=== PATIENT | female | born 1960 | race Caucasian/White ===

== ENCOUNTER 2017-01-06 22:46 | Emergency (ER) | payer BC ==
[2017-01-06 23:27] VITALS: BP 127/66
[2017-01-07] MEDS ORDERED: Lidocaine 1% 20 ML MDV INJECT ONE (00:41)
--- NOTE | 2017-01-07 01:10 | EDM.PDOC ---
ED HPI GENERAL MEDICAL PROBLEM - General Chief Complaint: Laceration Stated Complaint: FELL CUT HEAD Time Seen by Provider: 01/07/17 00:35 Source of Information: Reports: Patient History Limitations: Reports: No Limitations - History of Present Illness INITIAL COMMENTS - FREE TEXT/NARRATIVE: This patient comes in with scalp laceration to the anterior scalp in the midline. She told the nurse that she fell and bumped her head she tells me that she walked under something in [place]. There was no loss of consciousness. She denies any neck pain - Related Data Allergies Allergy/AdvReac Type Severity Reaction Status Date / Time codeine Allergy Cannot Verified 01/07/17 00:47 Remember Home Meds: Home Meds Atenolol 01/06/17 [History] Citalopram Hydrobromide [Celexa] 01/06/17 [History] Pantoprazole Sodium [Protonix] 01/06/17 [History] Simvastatin [Zocor] 01/06/17 [History] metFORMIN [Glucophage XR] 500 mg PO ACBREAKFAST 01/06/17 [History] metFORMIN [Glucophage] 1,000 mg PO BEDTIME 01/06/17 [History] Past Medical History - Past Health History Medical/Surgical History: Denies Medical/Surgical History Cardiovascular History: Reports: High Cholesterol, Hypertension 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 ED EXAM, SKIN/RASH Exam: See Below Exam Limited By: No Limitations General Appearance: Alert, WD/WN Head: Other (There is a 3 cm transverse scalp laceration to the anterior scalp in the midline fairly clean wound edges are well approximated. Bleeding has stopped) Neurological: Alert, Oriented, CN II-XII Intact, Normal Cognition, Normal Gait, No Motor/Sensory Deficits Course - Vital Signs Last Recorded V/S: Last Vital Signs Temp 35.8 C 01/06/17 23:32 Pulse 54 L 01/06/17 23:32 Resp 16 01/06/17 23:32 BP 127/66 01/06/17 23:32 Pulse Ox 94 L 01/06/17 23:32 - Orders/Labs/Meds Meds: Medications Discontinued Medications Generic Name Dose Route Start Last Admin Trade Name Trevor PRN Reason Stop Dose Admin Lidocaine HCl 20 ml 01/07/17 00:41 01/07/17 00:47 Xylocaine 1% INJECT 01/07/17 00:42 20 ml ONETIME ONE Administration - Re-Assessments/Exams Free Text/Narrative Re-Assessment/Exam: 01/08/17 05:32 The wound was cleaned with some Hibiclens and irrigated with normal saline. The edges were reapproximated and the wound was closed with talya approximately 6 talya I did use some 1% lidocaine prior to stapling it. Departure - Departure Time of Disposition: 01:09 Disposition: Home, Self-Care 01 Condition: Fair Clinical Impression: Scalp laceration - Discharge Information Instructions: Laceration Care, Adult Referrals: PCP,None [Primary Care Provider] - Forms: ED Department Discharge Additional Instructions: Wash the area with soap and water daily. Apply antibiotic ointment. See your doctor in 7 days for staple removal
== END 2017-01-07 01:24 | disposition home or self-care (01) ==
LOC: JP.ED 22:46
DX: S01.01XA Laceration without foreign body of scalp, initial encounter (principal); I10 Essential (primary) hypertension; E78.00 Pure hypercholesterolemia, unspecified; E11.9 Type 2 diabetes mellitus without complications; Z90.49 Acquired absence of other specified parts of digestive tract; Z88.5 Allergy status to narcotic agent; Z98.890 Other specified postprocedural states; W18.09XA Striking against other object with subsequent fall, initial encounter
CPT/HCPCS: 12002; 99283-25